=== PATIENT | male | born 1930 | race Caucasian/White ===

== ENCOUNTER → 2017-08-13 | Outpatient (CLI) | payer MEDICARE ==
--- NOTE | 2017-08-16 05:38 | RADIOLOGY REPORT PS360 ---
MRI-BRAIN W/O HISTORY: LOSS OF VISION RT EYE ORDERING PHYSICIAN: Lang Emery MD PATIENT AGE: 87 years COMPARISON: None TECHNIQUE: Standard multiplanar multiecho sequences are performed without contrast. FINDINGS: There is mild generalized motion artifact. There is mild diffuse generalized atrophy with nonspecific periventricular and subcortical T2 white matter hyperintensities consistent with ischemic gliotic change from microvascular disease. No midline shift or mass effect. No intracranial hemorrhage or hydrocephalus. No evidence of acute infarction or abnormal areas of restricted diffusion. The cerebellopontine angles, cerebellum, and brainstem are unremarkable. No pituitary mass or compressive changes on the optic chiasm. There is mild ectasia of the intracranial vessels of the [place]. No obvious aneurysm. MRA may be of further value if clinically warranted to evaluate the vascular ectasia. No mastoid effusion or sinus air-fluid level. IMPRESSION: 1. No acute intracranial findings. 2. Atrophy with chronic ischemic gliotic change. 3. Mild diffuse vascular ectasia of the [place] which may be better evaluated with MRA if clinically warranted
--- NOTE | 2017-08-16 05:38 | RADIOLOGY REPORT PS360 ---
MRI-BRAIN W/O HISTORY: LOSS OF VISION RT EYE ORDERING PHYSICIAN: Lang Emery MD PATIENT AGE: 87 years COMPARISON: None TECHNIQUE: Standard multiplanar multiecho sequences are performed without contrast. FINDINGS: There is mild generalized motion artifact. There is mild diffuse generalized atrophy with nonspecific periventricular and subcortical T2 white matter hyperintensities consistent with ischemic gliotic change from microvascular disease. No midline shift or mass effect. No intracranial hemorrhage or hydrocephalus. No evidence of acute infarction or abnormal areas of restricted diffusion. The cerebellopontine angles, cerebellum, and brainstem are unremarkable. No pituitary mass or compressive changes on the optic chiasm. There is mild ectasia of the intracranial vessels of the [place]. No obvious aneurysm. MRA may be of further value if clinically warranted to evaluate the vascular ectasia. No mastoid effusion or sinus air-fluid level. IMPRESSION: 1. No acute intracranial findings. 2. Atrophy with chronic ischemic gliotic change. 3. 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
== END ==
LOC: RAD 15:46
DX: H54.61 Unqualified visual loss, right eye, normal vision left eye (principal); R51 Headache